=== PATIENT | female | born 1975 | race Caucasian/White ===

== ENCOUNTER 2016-07-14 12:32 | Emergency (ER) | payer OTHER ==
[2016-07-14 14:10] LABS: ABSOLUTE NEUTROPHIL COUNT 4.9 K/mm3 (1.8-7.7); BASO # 0.1 K/mm3 (0.0-0.2); BASO % 0.7 % (0.2-1.0); EOS # 0.2 (0.0-0.5); EOS % 2.1 % (0.9-2.9); HEMATOCRIT 30.1 % (37.0-47.0); HEMOGLOBIN 8.2 gm/l (12.0-16.0); IMM NEUT% 0.3 % (0-1); LYMPH # 1.6 (1.0-4.8); LYMPH % 22.8 % (15-45); MEAN CELL VOLUME 64.3 fl (81.0-99.0); MEAN CORPUSCULAR HEMOGLOBIN 17.5 pg (27.0-31.0); MEAN CORPUSCULAR HGB CONC 27.2 g/dl (33.0-37.0); MEAN PLATELET VOLUME 9.1 fl (7.4-10.4); MONO # 0.4 (0.0-0.8); MONO % 5.6 % (4-12); NEUT % 68.5 % (43-75); PLATELET COUNT 371 K/mm3 (130-400); RED CELL DISTRIBUTION WIDTH 18.7 % (11.5-14.5)
[2016-07-14 14:17] LABS: ALB/GLOB RATIO 1.3 (>1.0); CALCIUM 9.2 mg/dL (8.6-10.3); MAGNESIUM 2.2 mg/dL (1.9-2.7)
[2016-07-14 14:43] LABS: INR 0.94; PROTHROMBIN TIME 9.9 SECONDS (9.3-11.4)
[2016-07-14] MEDS ORDERED: DIPHENHYDRAMINE HCL 50 MG/1 ML VIAL ONE (14:51)
[2016-07-14] MEDS ORDERED: METOCLOPRAMIDE HCL 5 MG/ML 2ML VIAL ONE (14:51)
[2016-07-14] MEDS ORDERED: ACETAMINOPHEN 325 MG TABLET ONE (14:51)
[2016-07-14] MEDS ORDERED: LACTATED RINGERS 1,000 ML ONE (14:51)
[2016-07-14 16:34] LABS: ANISOCYTOSIS 3+; HYPOCHROMIA 3+; PLATELET ESTIMATE NORMAL (NORMAL)
--- NOTE | 2016-07-14 17:06 | US ---
PELVIC COMPLETE, TRANSVAGINAL ECHOGRAPHY COMPARISON: Pelvic ultrasound, 12/28/2009 HISTORY: 41 years old. Excessive bleeding for 30 days. Pelvic pain. LMP 06/09/2016. Technique: Transabdominal and transvaginal. FINDINGS: Uterus: Length 10.8 cm by AP 6.7 cm by transverse 7.7 cm, and large by multiple masses, largest on the right 3.8 x 3.6 x 2.6 cm. Endometrium: Normal thickness, 1.1 cm.. Right ovary: Not visible. Left ovary: 3.9 x 1.9 x 1.6 cm. Volume 6.2 mL. Normal blood flow. Adnexa mass: None Fluid: None. IMPRESSION: 1. The uterus is enlarged by multiple leiomyomas, the largest on the right 3.8 x 3.6 x 2.6 cm. 2. Normal thickness endometrium. No suspicion for mass or hyperplasia. 3. Right ovary not visible, possibly because of the patient's body habitus. Normal left ovary. Report was sent to the emergency department electronic medical record system 07/14/2016 at 17:08
[2016-07-14 17:27] LABS: SPECIFIC GRAVITY 1.015 (1.001-1.030); URINE BILIRUBIN NEGATIVE (NEGATIVE); URINE BLOOD 4+ (NEGATIVE); URINE GLUCOSE (UA) NEGATIVE (NEGATIVE); URINE LEUKOCYTE ESTERASE TRACE (NEGATIVE); URINE NITRITE NEGATIVE (NEGATIVE); URINE PROTEIN 2+ (NEGATIVE); URINE UROBILINOGEN NORMAL (0-1 mg/dl)
[2016-07-14 17:32] LABS: URINE APPEARANCE CLOUDY; URINE COLOR RED
[2016-07-14 17:42] LABS: URINE EPITHELIAL CELLS 0 /hpf; URINE RBC PACKED /hpf; URINE WBC 0-2 /hpf
[2016-07-14 17:43] LABS: URINE BACTERIA RARE
== END 2016-07-14 17:35 | disposition home or self-care (01) ==
LOC: ED 12:32
DX: N92.0 Excessive and frequent menstruation with regular cycle (principal)
CPT/HCPCS: 83690; 84703; 85025; 87086; 80053; 83735; 85610; 81001; 86901; 86850 ×3; 76856; 76830; 96375; 99284 ×2; 96374; 96361; J1200; J2765; A9270; J7120

== ENCOUNTER 2016-07-16 15:29 | Emergency (ER) | payer OTHER ==
[2016-07-16] MEDS ORDERED: METOCLOPRAMIDE HCL 5 MG/ML 2ML VIAL ONE (16:35)
[2016-07-16] MEDS ORDERED: DIPHENHYDRAMINE HCL 50 MG/1 ML VIAL ONE (16:35)
[2016-07-16] MEDS ORDERED: KETOROLAC TROMETHAMINE 30 MG/ML 1 ML VIAL ONE (16:35)
[2016-07-16 16:50] LABS: BASO # 0.1 K/mm3 (0.0-0.2); BASO % 0.9 % (0.2-1.0); EOS # 0.2 (0.0-0.5); EOS % 2.3 % (0.9-2.9); HEMATOCRIT 28.9 % (37.0-47.0); IMM NEUT% 0.4 % (0-1); LYMPH # 1.8 (1.0-4.8); LYMPH % 23.7 % (15-45); MEAN CELL VOLUME 64.5 fl (81.0-99.0); MEAN CORPUSCULAR HEMOGLOBIN 17.9 pg (27.0-31.0); MEAN CORPUSCULAR HGB CONC 27.7 g/dl (33.0-37.0); MEAN PLATELET VOLUME 8.6 fl (7.4-10.4); MONO # 0.5 (0.0-0.8); NEUT % 66.7 % (43-75); PLATELET COUNT 379 K/mm3 (130-400); RED CELL DISTRIBUTION WIDTH 18.6 % (11.5-14.5)
[2016-07-16 17:05] LABS: ALB/GLOB RATIO 1.3 (>1.0); ALBUMIN 4.2 gm/dL (3.5-5.7); CALCIUM 8.9 mg/dL (8.6-10.3)
[2016-07-16 17:47] LABS: ANISOCYTOSIS 1+; OVALOCYTES 1+; PLATELET ESTIMATE NORMAL (NORMAL)
== END 2016-07-16 17:57 | disposition home or self-care (01) ==
LOC: ED 15:29
DX: I10 Essential (primary) hypertension (principal); R51 Headache
CPT/HCPCS: 85025; 80053; 96375 ×2; 99283; 96374; 93005; 99284; J1200; J2765; J1885

== ENCOUNTER 2016-08-13 05:46 | Day surgery (SDC) | payer OTHER ==
--- NOTE | 2016-08-12 15:50 | HP ---
JOSE WALTERS [id number] DATE OF : 1975 HISTORY OF PRESENT ILLNESS: This is a 41-year-old female admitted for a history of heavy vaginal bleeding which lasted on her last period 34 days, with the passage of clots. She has been having heavy prolonged periods for about four months now. Ultrasound showed a small fibroid uterus. She had an endometrial biopsy which showed benign endometrial tissue that was proliferative endometrium with breakdown. OB HISTORY: The patient is a G-10, P-7, 0-3-7. Seven normal vaginal deliveries and three spontaneous abortions, and D&Cs with them. 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 STDs negative. She has been using Provera in the past without success to control the bleeding. She had a Pap test in August of 2015 which was normal. PAST MEDICAL HISTORY: Positive for: 1. Asthma. 2. Obesity. 3. Migraines. 4. Hypertension. She is being followed by a PCP for the hypertension. PAST SURGICAL HISTORY: Includes: 1. Eye surgery. 2. D&C. 3. Cholecystectomy. 4. Umbilical herniorrhaphy. ALLERGIES: Codeine and Compazine. MEDICATIONS: Include: 1. Cymbalta. 2. Maxalt 10 mg. SOCIAL HISTORY: She is a nonsmoker, but she does admit to using alcohol. FAMILY HISTORY: Positive for lung cancer with her mother and grandmother. Her father had bone cancer and her paternal grandmother had ovarian cancer. REVIEW OF SYSTEMS: Noncontributory, with the exception of the history of abnormal bleeding. PHYSICAL EXAMINATION: GENERAL: An obese female in no acute distress. HEENT: Normal. NECK: Supple. Thyroid not palpable. BREASTS: Soft. No masses. HEART: Regular sinus rhythm. No murmurs. LUNGS: Clear. ABDOMEN: Obese and benign. PELVIC: External genitalia; multiple skin tags present on the labia. Vagina had minimal bleeding noted. The cervix was pink, patulous and nontender. Uterus ten week size, anteverted and nontender. Adnexa negative. IMPRESSION: 1. Leiomyoma uteri. 2. History of anemia. 3. Skin tags. 4. Obesity. 5. Abnormal uterine bleeding. 6. Medical history of hypertension. PLAN: D&C, hysteroscopy, endometrial ablation and excision of skin tags. The risks, reasons, complications, living will and alternatives discussed. These were discussed in general terms and the patient is aware that there is no guarantee of success with the endometrial ablation, although 80% success rate was quoted with a 20% failure rate after five years, and complications were not limited to what was discussed during her preoperative exam. She indicated that she understood the general terms and also understood the procedure and is prepared to go ahead with it. and #[id number]
[2016-08-13] MEDS ORDERED: LACTATED RINGERS 1,000 ML ONE (05:55)
[2016-08-13] MEDS ORDERED: IV START KIT ONE (05:55)
[2016-08-13] MEDS ORDERED: FENTANYL 100 MCG/2 ML VIAL ONE (06:27)
[2016-08-13] MEDS ORDERED: MIDAZOLAM HCL 1 MG/ML 2ML VIAL ONE (06:27)
[2016-08-13] MEDS ORDERED: DEXAMETHASONE SOD PHOS 4 MG/1 ML VIAL ONE (07:27)
[2016-08-13] MEDS ORDERED: ONDANSETRON 4 MG/2ML 2 ML VIAL ONE (07:27)
[2016-08-13] MEDS ORDERED: SUCCINYLCHOLINE CHL 20 MG/ML DOSE ONE (07:27)
[2016-08-13] MEDS ORDERED: DIPHENHYDRAMINE HCL 50 MG/1 ML VIAL ONE (07:27)
[2016-08-13] MEDS ORDERED: LIDOCAINE 2% (PRES FREE) 5 ML VIAL ONE (07:27)
[2016-08-13] MEDS ORDERED: PROPOFOL 20 ML IV ONE (07:27)
[2016-08-13] MEDS ORDERED: HYDROMORPHONE HCL 1 MG/ML SYRINGE IV PRN (07:34)
[2016-08-13] MEDS ORDERED: ATROPINE SULFATE 0.4 MG/1 ML VIAL IV PRN (07:34)
[2016-08-13] MEDS ORDERED: PROMETHAZINE HCL 25 MG/ML VIAL IM PRN (07:34)
[2016-08-13] MEDS ORDERED: ONDANSETRON 4 MG/2ML 2 ML VIAL IV PRN (07:34)
[2016-08-13] MEDS ORDERED: NALOXONE HCL 0.4 MG/ML VIAL IV PRN (07:34)
[2016-08-13] MEDS ORDERED: LACTATED RINGERS 1,000 ML IV SCH ×2 (07:45→08:45)
--- NOTE | 2016-08-13 08:22 | PCMBPN ---
Brief Post Op Note: Date of Procedure: 08/13/16 Start Time: Preoperative Diagnosis: 1. skin tags, abnormal uterine bleeding, obesity, anemia, leiomyoma uteri Postoperative Diagnosis: 1. Same Procedure: dilatation and curettage, hysteroscopy, excision of skin tags, endometrial ablation Surgeon: Isaiah Fonseca Assist: Anesthesia: mr kong, general Findings: external genitalia heathy with exception of 4 skin tags on left labia , vagina-rectocele, cystocele, cervix-pink, patulous, uterus-10 weeks size anteverted, adnexa negative, sounded to 11 cm., novasure set at 6.5cm (maximum setting),cervical length 3cm, width 4.5cm, power of ablation 161, time 1:32, hysteroscopy-normal findings, 300cc normal saline used, deficit 0 Condition: stable Complications: none IV Fluids: mLs of LR Urine Output: 20 mLs Estimated Blood Loss: 5 mLs Tourniquet Time: N/A Specimens: endometrial and endocervical curettings, 4 x skin tags Implants: Drains: N/A patient tolerated procedure well and was returned to recovery room in stable condition.
[2016-08-13] MEDS ORDERED: IBUPROFEN 800 MG TABLET PO PRN (08:23)
[2016-08-13] MEDS ORDERED: OXYCODONE/ACETAMINOPHEN 5/325 MG TABLET PO PRN (08:23)
[2016-08-13] MEDS ORDERED: DIPHENHYDRAMINE HCL 50 MG/1 ML VIAL IV PRN (08:23)
[2016-08-13] MEDS: FENTANYL 100 MCG/2 ML VIAL IV PRN ×2 (08:30→08:37)
[2016-08-13] MEDS ORDERED: LIDOCAINE 1% 2 ML VIAL ID PRN (08:34)
--- NOTE | 2016-08-13 09:35 | OP ---
Soha Panchal : 1975 NAME OF OPERATION: Dilation and curettage, hysteroscopy, excision of skin tags, and endometrial ablation. PREOPERATIVE DIAGNOSES: 1. Vulvar skin tags. 2. Abnormal uterine bleeding. 3. Obesity. 4. Anemia. 5. Leiomyoma uteri. POSTOPERATIVE DIAGNOSES: 1. Vulvar skin tags. 2. Abnormal uterine bleeding. 3. Obesity. 4. Anemia. 5. Leiomyoma uteri. OPERATORY: Dr. Isaiah Sarabia. ANESTHESIA: General Joy. DESCRIPTION OF PROCEDURE: Dictation begins with patient in the lithotomy position under general anesthesia. The vagina and local area were prepared with Betadine and draped in the usual manner. After a timeout was performed, exam under anesthesia revealed the external genitalia healthy with the exception of four skin tags on the left labia. The vagina was healthy, but it did contain a small cystocele and a larger rectocele. Cervix was pink and patulous. Uterus 10 weeks size and anteverted. Adnexa negative. A Duckbill speculum was inserted into the vagina gently and the anterior lip of the cervix was grasped with a single prong tenaculum. Curettage from the endocervical canal produced scanty amounts of mucous and blood. Next, the uterus was sounded to 11 cm. The cervix gradually dilated with Mikala dilators and then curettage produced 4 mL of endometrial curettings. Hysteroscopic exam was next performed, findings were normal. Normal saline 300 mL was used with a deficit of 0. Photographs were taken of the cavity. After completion of hysteroscopy the NovaSure endometrial ablation was performed. The entire length of the cervix and cavity measured 11 cm. The cervical length was 3 cm. The NovaSure was set at the maximum of 6.5 cm for cavity length and then inserted into the endometrial cavity and opened. It was turned left and right and moved forward and back and then the width was calculated to be 4.5 cm. At this point the NovaSure ablation was started. The power of the ablation was 161 and the time was 1 minute and 32 seconds. It was performed uneventfully and then the fan was collapsed and removed. There was cauterized tissue noted on the mesh of the fan. Lastly, the four skin tags were removed using a knife and then the base was cauterized with a needle cautery resulting in complete hemostasis. No sutures were needed. At this point, the operation was ended. The Duckbill speculum was inserted. There was no vaginal bleeding noted prior to the Duckbill being removed and the single prong tenaculum was also removed. Estimated blood loss was 5 mL. She had been catheterized prior to the onset of the surgery and total urine output from the catheterization was 20 mL. The patient tolerated procedure well and was returned to recovery room in stable condition. FINAL DIAGNOSIS: As above. JOB: [id number]
--- NOTE | 2016-08-13 09:39 | DS ---
Soha Panchal A 41-year-old female admitted with a history of abnormal uterine bleeding and associated anemia, fibroid uterus, obesity, and skin tags. She underwent a dilation and curettage, hysteroscopy, excision of skin tags, and endometrial ablation and tolerated the procedures well to be sent home in good condition and advised office visit in one weeks time. Activities were explained to her before she underwent anesthesia. She will be sent home with Percocet and iron supplementation. FINAL DIAGNOSES: 1. Skin tags. 2. Abnormal uterine bleeding. 3. Obesity. 4. Anemia. 5. Leiomyoma uteri. Pathology is pending. test was negative. JOB: [id number]
[2016-08-13] MEDS ORDERED: KETOROLAC TROMETHAMINE 30 MG/ML 1 ML VIAL IV ONE (09:40)
[2016-08-13] MEDS ORDERED: MORPHINE SULFATE 2 MG/ML SYRINGE IV ONE (09:41)
[2016-08-13] MEDS ORDERED: PROMETHAZINE HCL 25 MG/ML VIAL IM ONE (09:42)
--- NOTE | 2016-08-17 11:56 | SURGPATH ---
[facility] [address] [place] [id number] Patient Name: JOSE WALTERS MR#: [id number] : 1975 Gender: F Specimen #: [id number] Collected: 08/13/2016 Received: 08/16/2016 Reported: 08/17/2016 Submitting Phys: MARC COLEMAN I Copy To Phys: PEDRO [facility] Clinical History / Pre-Operative Diagnosis: Vaginal bleeding; skin tags Specimen Source / Surgical Procedure Performed: #1-endometrial curetting; #2-skin tags x4; #3-endocervical curetting Interpretation: 1. ENDOMETRIUM, CURETTING: - BENIGN ENDOMETRIAL POLYP WITH SECRETORY CHANGE AND BREAKDOWN 2. SPECIMEN LABELED "SKIN TAGS", BIOPSIES: - INTRADERMAL NEVI 3. ENDOCERVIX, CURETTING: - ACUTE INFLAMMATION, NEGATIVE FOR DYSPLASIA Electronically Signed Out Yoan Montes De Oca M.D. Gross Description: #1 The specimen is received in a formalin filled container labeled with the patient's name and "endometrial curetting". An aggregate of hampton tissue admixed with hemorrhagic material is 2.5 x 1.5 x 0.5 cm. Totally embedded in cassette #1. #2 The specimen is received in a formalin filled container labeled with the patient's name and "skin tags x4". Four trejo-hampton skin biopsies are 0.2 x 0.2 x 0.1 cm to 0.7 x 0.6 x 0.5 cm. The two largest biopsies are each inked and bisected totally embedded in cassette #2. #3 The specimen is received in a formalin filled container labeled with the patient's name and "endocervical curetting". An aggregate of blood tinged mucoid material is 1.0 x 0.7 x 0.3 cm. Totally embedded in cassette #3. Ayaz Lenz Microscopic Description: 1. Polypoid segments of endometrial tissue are embedded with thickwalled vessels and secretory phase glands. There is glandular and stromal breakdown. This represents benign endometrial polyps with secretory change and breakdown. Atypia or malignancy is not identified. 2. Sections show expansile dermal nests and sheets of melanocytes representing intradermal nevi. 3. Sections show fragments of benign endocervical mucosa with acute inflammation. 1: 96577 2: 16671 3: 44003 N93.9
== END 2016-08-13 11:18 | disposition home or self-care (01) ==
LOC: SDC 05:46 → SUATTDRO 05:46 → SDC 11:18
PROVIDERS: ATTEND Obstetrics & Gynecology
PROC: 0U5B8ZZ Destruction of Endometrium, Via Natural or Artificial Opening Endoscopic (ICD-10-PCS; principal; 2016-08-13)
DX: N84.0 Polyp of corpus uteri (principal); D28.0 Benign neoplasm of vulva; J45.909 Unspecified asthma, uncomplicated; D64.9 Anemia, unspecified; D25.9 Leiomyoma of uterus, unspecified; N93.9 Abnormal uterine and vaginal bleeding, unspecified; I10 Essential (primary) hypertension; E66.9 Obesity, unspecified; Z80.1 Family history of malignant neoplasm of trachea, bronchus and lung; Z80.41 Family history of malignant neoplasm of ovary; Z80.8 Family history of malignant neoplasm of other organs or systems; Z88.8 Allergy status to other drugs, medicaments and biological substances; Z88.5 Allergy status to narcotic agent; Z79.899 Other long term (current) drug therapy